=== PATIENT | female | born 1985 | race Caucasian/White ===

== ENCOUNTER 2016-08-28 11:58 | Emergency (ER) | payer OTHER ==
[~2016-08-28] VITALS: Ht 157.5 cm; Wt 70.2 kg
[~2016-08-28 11:58] MED LIST: ENDOCET 5-3251 EACH PO; IBUPROFEN800 MG PO; PRENATAL VITAM1 EAC1 PO
[2016-08-28 12:53] LABS: HEMATOCRIT 41.6 % (36.0-46.0); MCH 30.2 PG (29.0-34.0); MCHC 35.3 G/DL (30.0-36.0); MCV 85.6 FL (83-99); MEAN PLAT.VOLUME 10.8 uM^3 (9.5-12.4); PLATELET COUNT 126 K/uL (156-360); RBC DIS.WIDTH-CV 12.2 % (11.8-14.6); RED BLOOD COUNT 4.86 M/uL (3.80-5.20); WHITE BLOOD COUNT 2.3 K/uL (4.1-10.2)
[2016-08-28 12:56] LABS: CHLORIDE 107 mEq/L (99-109); POTASSIUM 3.5 mEq/L (3.7-5.4); SODIUM 141 mEq/L (136-147)
[2016-08-28 12:58] LABS: GLUCOSE 89 mg/dL (70-99)
[2016-08-28 12:59] LABS: EOSINOPHIL (%) 0.9 % (0-5); LYMPHOCYTE COUNT 1.1 K/uL (1.0-2.8); MONOCYTE (%) 17.3 % (3-12); MONOCYTE COUNT 0.4 K/uL (0-0.8); NEUTROPHIL (%) 35.5 % (45-76); NEUTROPHIL COUNT 0.8 K/uL (1.8-6.4)
[2016-08-28 13:00] LABS: ANION GAP 12 MEQ/L (2-14); TOTAL BILIRUBIN 0.4 mg/dL (0.0-1.0)
[2016-08-28 13:01] LABS: D-DIMER ELISA 0.89 mg/L FEU (< 0.57)
[2016-08-28 13:02] LABS: ALKALINE PHOSPHATASE 66 IU/L (3-129); GFR ESTIMATE (CALCULATED) > 59 mL/min/
[2016-08-28 13:03] LABS: UREA NITROGEN (BUN) 7 mg/dL (9-23)
[2016-08-28 13:12] LABS: QUANTITATIVE HCG < 4.0 MIU/ML
[2016-08-28 13:46] LABS: ADD MIUA? YES; BILIRUBIN NEGATIVE; BLOOD NEGATIVE; COLOR YELLOW ((YELLOW)); GLUCOSE (STRIP) NEGATIVE; KETONES 40; LEUKOCYTES TRACE; NITRITE NEGATIVE; PROTEIN (STRIP) NEGATIVE; SPECIFIC GRAVITY 1.003 (1.000-1.030); UROBILINOGEN 0.2 MG/DL (0.2-1.0)
[2016-08-28 13:56] LABS: HEMATOLOGY COMMENT 1 SMEAR COMPATIBLE; PLAT.SUFFICIENCY DECREASED; USER ID TLW
[2016-08-28 14:14] LABS: INFLUENZA A VIRAL ANTIGEN NEGATIVE; INFLUENZA B VIRAL ANTIGEN POSITIVE
[2016-08-28 14:20] LABS: BACTERIA RARE /HPF; CASTS NONE SEEN /LPF; CRYSTALS NONE SEEN; EPITHELIAL CELLS 1+ /HPF; MUCUS NONE SEEN /LPF; RED BLOOD CELLS NONE SEEN /HPF (0-5); WHITE BLOOD CELLS 0-5 /HPF (0-5)
[2016-08-28] MEDS ORDERED: MOTRIN800 MG PO (16:47)
[2016-08-28] MEDS ORDERED: ROBITUSSIN DM118 ML PO (16:47)
[2016-08-28] MEDS ORDERED: CLARITIN10 MG PO (16:47)
[2016-08-28 17:07] VITALS: BP 129/61
== END 2016-08-28 17:17 | disposition home or self-care (01) ==
LOC: EME 11:58
PROVIDERS: Emergency Medicine
DX: J10.1 Influenza due to other identified influenza virus with other respiratory manifestations (principal); J01.10 Acute frontal sinusitis, unspecified; J01.00 Acute maxillary sinusitis, unspecified; R07.89 Other chest pain
CPT/HCPCS: 71020; 71275; 80053; 81003; 84702; 85025; 85379; 87502; 87651 90; 93005; 94640; 99281; 99285; J2405; J7030